=== PATIENT | male | born 1960 | race Caucasian/White ===

== ENCOUNTER 2021-11-05 07:52 | Day surgery (SDC) | payer MEDICAID ==
[~2021-11-05 07:52] MED LIST: Metoclopramide 10 MG/2 ML SDV IV PRN
[2021-11-05] MEDS: Sodium Chloride 0.9% 1,000 ML IV SCH (08:10)
[2021-11-05] MEDS ORDERED: Propofol 1,000 MG/100 ML SDV ONE (09:15)
[2021-11-05 09:44] VITALS: BP 118/70; PULSE 82
== END 2021-11-05 10:40 | disposition home or self-care (01) ==
LOC: LB.SDS 07:52
PROVIDERS: ATTEND Surgery
DX: D12.5 Benign neoplasm of sigmoid colon (principal); I10 Essential (primary) hypertension; E78.00 Pure hypercholesterolemia, unspecified; I25.10 Atherosclerotic heart disease of native coronary artery without angina pectoris; E78.5 Hyperlipidemia, unspecified; G47.33 Obstructive sleep apnea (adult) (pediatric); Z79.899 Other long term (current) drug therapy
CPT/HCPCS: 45384; J2704; J7030; 88305

== ENCOUNTER 2022-02-18 17:27 | Emergency (ER) | payer MEDICAID ==
[2022-02-18] MEDS: Aspirin 81 MG Tab.Chew PO ONE (17:40)
[2022-02-18] MEDS: Nitroglycerin 0.4 MG Tab.SL SL ONE (17:40)
[2022-02-18] MEDS ORDERED: Sodium Chloride 0.9% 10 ML Syringe FLUSH PRN (17:54)
[2022-02-18 18:30] LABS: ESTIMATED GFR 92 mL/min (>60)
[2022-02-18 18:49] VITALS: BP 114/77; PULSE 80
[2022-02-18] MEDS: Ketorolac 60 MG/2 ML SDV IM ONE (20:06)
== END 2022-02-18 20:11 | disposition home or self-care (01) ==
LOC: LB.ED 17:27
DX: M54.12 Radiculopathy, cervical region (principal); I25.119 Atherosclerotic heart disease of native coronary artery with unspecified angina pectoris; E78.00 Pure hypercholesterolemia, unspecified; I10 Essential (primary) hypertension; I25.2 Old myocardial infarction; E66.9 Obesity, unspecified; Z68.38 Body mass index [BMI] 38.0-38.9, adult; Z79.01 Long term (current) use of anticoagulants; Z79.82 Long term (current) use of aspirin; Z79.899 Other long term (current) drug therapy
CPT/HCPCS: 36415; 80048; 84484; 85027; 93005; 96372; 99284; A9270; J1885; 93010; 99283

== ENCOUNTER 2022-04-22 06:10 | Emergency (ER) | payer MEDICAID ==
[2022-04-22] MEDS: Ketorolac 60 MG/2 ML SDV IM ONE (06:31)
[2022-04-22] MEDS: Sodium Chloride 0.9% 20 ML SDV FLUSH PRN (07:39)
[2022-04-22] MEDS: Sodium Chloride 0.9% 1,000 ML IV SCH (07:45)
[2022-04-22] MEDS: HYDROmorphone 2 MG/ML Syringe ONE (07:48)
[2022-04-22] MEDS: HYDROmorphone 2 MG/ML SDV IVPUSH ONE (07:49)
[2022-04-22] MEDS: Tamsulosin 0.4 MG Cap.ER ONE (07:50)
[2022-04-22] MEDS: Tamsulosin 0.4 MG Cap.ER PO ONE (07:51)
[2022-04-22] MEDS ORDERED: Ondansetron 4 MG/2 ML SDV IVPUSH PRN (08:03)
[2022-04-22 09:55] VITALS: BP 119/63; PULSE 80
== END 2022-04-22 09:34 | disposition home or self-care (01) ==
LOC: LB.ED 06:10
DX: N20.1 Calculus of ureter (principal); I25.2 Old myocardial infarction; I10 Essential (primary) hypertension; E78.00 Pure hypercholesterolemia, unspecified; E66.9 Obesity, unspecified; Z68.38 Body mass index [BMI] 38.0-38.9, adult; Z95.1 Presence of aortocoronary bypass graft; Z79.82 Long term (current) use of aspirin; Z79.899 Other long term (current) drug therapy
CPT/HCPCS: 36415; 74176; 80053; 81001; 85025; 96361; 96372; 96374; 99283-25; A9270-GY; J1170; J1885; J7030

== ENCOUNTER 2023-08-11 15:18 | Emergency (ER) | payer OTHER ==
[2023-08-11] MEDS: Acetaminophen/HYDROcodone 325-5 MG Tab PO ONE (15:52)
[2023-08-11] MEDS ORDERED: Acetaminophen/HYDROcodone 325-5 MG Tab ONE (17:00)
[2023-08-11 18:12] VITALS: BP 130/82; PULSE 89
== END 2023-08-11 17:02 | disposition home or self-care (01) ==
LOC: MERGE 15:18 → LB.ED 15:18
DX: S70.01XA Contusion of right hip, initial encounter (principal); E78.00 Pure hypercholesterolemia, unspecified; I10 Essential (primary) hypertension; Z79.899 Other long term (current) drug therapy; Z86.19 Personal history of other infectious and parasitic diseases; W11.XXXA Fall on and from ladder, initial encounter
CPT/HCPCS: 73502-RT; 99283; A9270-GY

== ENCOUNTER 2024-07-24 16:40 | Emergency (ER) | payer MEDICARE ==
[2024-07-24 16:51] VITALS: PULSE 85
[2024-07-24 17:12] VITALS: BP 130/80
== END 2024-07-24 17:15 | disposition home or self-care (01) ==
LOC: LB.ED 16:40
DX: S05.01XA Injury of conjunctiva and corneal abrasion without foreign body, right eye, initial encounter (principal); I10 Essential (primary) hypertension; I25.10 Atherosclerotic heart disease of native coronary artery without angina pectoris; E66.9 Obesity, unspecified; E78.00 Pure hypercholesterolemia, unspecified; Z79.82 Long term (current) use of aspirin; Z68.38 Body mass index [BMI] 38.0-38.9, adult; Z79.899 Other long term (current) drug therapy; X58.XXXA Exposure to other specified factors, initial encounter
CPT/HCPCS: 99283